=== PATIENT | male | born 1990 | race Caucasian/White ===

== ENCOUNTER 2018-05-11 00:17 | Emergency (ER) | payer OTHER ==
[2018-05-11] MEDS: IBUPROFEN 800 MG TAB PO (00:39)
== END 2018-05-11 00:47 | disposition home or self-care (01) ==
LOC: FTE 00:17
DX: H66.92 Otitis media, unspecified, left ear (principal); J45.909 Unspecified asthma, uncomplicated; H61.21 Impacted cerumen, right ear
CPT/HCPCS: 99283; Z7502